=== PATIENT | female | born 2000 | race Caucasian/White ===

== ENCOUNTER 2023-11-04 07:31 | Emergency (ER) | payer BC, SELFPAY ==
[2023-11-04 07:39] VITALS: BP 145/97
--- NOTE | 2023-11-04 08:00 | ED.GENMED ---
History of Present Illness
General
Chief Complaint: Abdominal Symptoms
Source: patient
Time Seen by Provider: 11/04/23 07:47
History of Present Illness
History of Present Illness:
23-year-old female presents to the emergency room complaining of diarrhea, abdominal pain. Patient states symptoms began about 3 to 4 days ago. She denies any blood or mucus in the diarrhea. She has had several episodes of diarrhea today. No
known fever. No chills. Patient denies any recent travel. She is unaware of any sick contacts.
Phy Exam
Physical Exam
Physical Exam:
General: Awake, Alert, Oriented X3. No acute distress.
Vitals: unremarkable
Head: Atraumatic
Eyes: Pupils equal, EOMI
Throat: Airway intact, no exudates
Neck: Trachea midline
Lungs: Clear and equal b/l
Heart: Regular rate, no murmurs
Abd: Soft, Nontender, No pulsatile mass
Neuro: Nonfocal
Skin: Warm, dry, no rash
Extremities: pulses equal b/l, no edema
Course
Orders/Labs/Results
Orders:
Orders
11/04/23 08:17
0.9% Sodium Chloride 1000 ml [Nss] 1,000 ml IV BOLUS
Ketorolac [Toradol] 15 mg IV NOW STA
11/04/23 08:18
Test Result ONCE
11/04/23 08:24
Basic Metabolic Panel Urgent
Complete Blood Count/With Diff Urgent
HCG, Serum Qualitative Screen Urgent
Abnormal Lab Results
11/04/23
08:24
RDW 11.3 L %
(11.5-14.5)
11/04/23 08:24
11/04/23 08:24
Vital Signs
Initial and Last Documented VS:
Initial Vital Signs
Temp Pulse Resp BP Pulse Ox
99.9 F 95 16 145/97 99
11/04/23 07:39 11/04/23 07:39 11/04/23 07:39 11/04/23 07:39 11/04/23 07:39
Last Documented Vital Signs
Temp Pulse Resp BP Pulse Ox
99.2 F 58 16 129/69 99
11/04/23 11:48 11/04/23 11:48 11/04/23 11:48 11/04/23 11:48 11/04/23 11:48
MDM/Problems Addressed
Differential Diagnosis Includes:
Viral gastroenteritis, bacterial gastroenteritis, irritable bowel syndrome, inflammatory bowel disease
MDM/Problems Addressed:
Patient presents with diarrhea which was bloody, crampy abdominal pain. No fever. Labs are unremarkable. Patient has no reproducible abdominal pain on exam and therefore I do not believe a CT scan in the associated radiation is justifiable.
Patient be treated with Bentyl. We discussed why we would not prescribe antibiotics initially. Patient will follow-up with GI as an outpatient. Patient reveals that she has had similar episodes 2 or 3 times in the past year. Inflammatory bowel
disease is certainly more of a possibility without information. Follow-up with GI still is the appropriate course of action.
*Pulse Oximetry
Patient hypoxic: no
*Critical Care Note
Total Time (30-74mins, 75-104mins- exclusive of procedures): Not Applicable
ED Attending Note
-
Portions of this chart may have been created with voice recognition software.� Occasional wrong word or��sound alike� substitutions may have occurred due to the inherent limitations of voice recognition software.
Discharge Plan
Departure
Patient Disposition: Home (Routine Discharge)
Date of Disposition: 11/04/23
Time of Disposition: 11:04
Patient with high blood pressure during this ER visit?: Yes
Condition: Good
Discharge Problem:
Diarrhea
Instructions: Diarrhea in teens and adults
Prescriptions:
New
dicyclomine 20 mg tablet
20 mg PO QID PRN (Reason: abdominal cramping) Qty: 20 0RF
Referrals:
Chel Roth MD [Active] -
Interventions
Interventions:
*Risk Screen - Suicide Last Done: 11/04/23 08:30
*General Assessment Last Done: 11/04/23 08:34
*Neglect/Abuse Screening Last Done: 11/04/23 08:34
*ED COVID-19 Vaccine History Last Done: 11/04/23 08:40
*Nursing Disposition Last Done: 11/04/23 11:48
[facility]-Vwynsiaxf[facility] Assessment Last Done: 11/04/23 08:38
Discharge Date and Time
Discharge Date/Time: 11/04/23 11:53
Print Language: THAI
[2023-11-04] MEDS: NSS 1000 IV (08:27)
[2023-11-04] MEDS: TORADOL 15 MG IV (08:27)
[2023-11-04 08:38] LABS: % Basophils 0.8 % (0-2); % Immature Granulocytes 0.2 % (0-0.5); % Lymphocytes 24.4 % (20.5-51.1); % Monocytes 7.9 % (1.7-9.3); % Neutrophils 65.7 % (42.2-75.2); Absolute Eosinophils 0.1 10^3/uL (0-0.7); Absolute Lymphocytes 1.2 10^3/uL (1.2-3.4); Absolute Monocytes 0.4 10^3/uL (0.1-0.6); Absolute Neutrophils 3.3 10^3/uL (1.4-6.5); Hematocrit 37.8 % (37.0-47.0); Hemoglobin 13.4 g/dL (12.0-16.0); Mean Corp Hgb Conc. 35.4 g/dL (33.0-37.0); Mean Corpuscular Hgb 30.6 pg (27.0-31.0); Mean Corpuscular Volume 86.3 fL (81.0-99.0); Mean Platelet Volume 10.2 fL (7.4-10.4); Nucleated Red Blood Cells % 0 %; Platelet Count 254 10^3/uL (130-400); Red Blood Cell Count 4.38 10^6/uL (4.20-5.40); Red Cell Dist. Width 11.3 % (11.5-14.5)
[2023-11-04 08:59] LABS: Blood Urea Nitrogen 12 mg/dl (7-17); Calcium 9.9 mg/dl (8.4-10.2); Carbon Dioxide 23 mmol/L (22-30); Chloride 107 mmol/L (98-107); Glucose 91 mg/dl (70-99); Potassium 3.9 mmol/L (3.5-5.1); Sodium 138 mmol/L (135-145); eGFR > 60.00
[2023-11-04 09:02] LABS: HCG, Serum Qualitative Screen Negative
[2023-11-04 11:23] VITALS: BP 121/69
[2023-11-04 11:48] VITALS: BP 129/69
== END 2023-11-04 11:53 | disposition home or self-care (01) ==
LOC: EMR 07:31
PROVIDERS: EMERGENCY PHYSICIAN Emergency Medicine; FAMILY PHYSICIAN Family Medicine
DX: R19.7 Diarrhea, unspecified (principal); R10.9 Unspecified abdominal pain; K92.1 Melena; R03.0 Elevated blood-pressure reading, without diagnosis of hypertension; Z88.8 Allergy status to other drugs, medicaments and biological substances
CPT/HCPCS: 99284; 96374; 96361; 80048; 84703; 85025

== ENCOUNTER → 2024-02-11 16:34 | Outpatient (REF) | payer BC, SELFPAY | LOC: CLAB 16:34 | PROVIDERS: ATTENDING PHYSICIAN Otolaryngology | DX: J35.01 Chronic tonsillitis (principal) | CPT/HCPCS: 88304 ==